=== PATIENT | female | born 1950 | race Caucasian/White ===

== ENCOUNTER → 2017-03-19 | Outpatient (CLI) | payer OTHER ==
[~2017-03-19] MED LIST: ACETAMINOPHEN325 M1 PO; ADVAIR 250-501 EACH INH; ATORVASTATIN CA40 MG PO; AZELAST NASAL137 MC1 NASAL; BENAZEPRIL HCL20 MG PO; BENZONATATE100 MG PO; BUDEPRION XL300 MG PO; LEVAQUIN 250 M250 MG PO; LIPITOR 40 MG T40 M1 PO; MULTI-VITAMIN1 EAC5 PO; NICOTINE TRANSD14 M1 TRANSDERM; OMEPRAZOLE MAGN20 MG PO; PREDNISONE 10 M10 M1; PRILOSEC 20 MG20 MG PO; SPIRIVA INH; VENTOLIN HFA 1818 GM INH
== END ==
LOC: RAD 04:00
DX: Z12.31 Encounter for screening mammogram for malignant neoplasm of breast (principal)

== ENCOUNTER → 2017-05-13 | Outpatient (CLI) | payer OTHER | LOC: NUC 08:50 | DX: N91.2 Amenorrhea, unspecified (principal); Z78.0 Asymptomatic menopausal state ==

== ENCOUNTER → 2018-03-30 | Outpatient (CLI) | payer OTHER | LOC: RAD 11:18 | DX: Z12.31 Encounter for screening mammogram for malignant neoplasm of breast (principal) ==

== ENCOUNTER → 2019-04-28 | Outpatient (CLI) | payer OTHER | LOC: RAD 09:52 | DX: Z12.31 Encounter for screening mammogram for malignant neoplasm of breast (principal) ==